=== PATIENT | male | born 1945 | race Caucasian/White ===

== ENCOUNTER 2016-12-16 20:08 | Emergency (ER) | payer MEDICARE, BC ==
[2016-12-16] MEDS ORDERED: HYDROmorphone 1 MG/ML Syringe IM ONE (20:25)
[2016-12-16] MEDS ORDERED: Gabapentin 400 MG Cap PO ONE (20:25)
[2016-12-16] MEDS ORDERED: methylPREDNISolone Sodium Succinate 125 MG/2 ML SDV IVPUSH ONE (20:26)
--- NOTE | 2016-12-16 20:27 | EDM.PDOC ---
ED HPI GENERAL MEDICAL PROBLEM - General Chief Complaint: General Stated Complaint: juanjo after surgery [id number] Time Seen by Provider: 12/16/16 20:21 Source of Information: Reports: Patient History Limitations: Reports: No limitations - History of Present Illness INITIAL COMMENTS - FREE TEXT/NARRATIVE: 71 yo white male s/p lumbar surgery @ [facility]. 2 days ago. Lumbar Min. Invasive L2-L3 Microdiscectomy & Biopsy c/o lower extremities weakness and pain. Pt. states Oxycodon not effective Onset: today Onset Date: 12/16/16 Onset Time: 12:00 Duration: Hour(s): Location: Reports: back, lower extremity, left, lower extremity, right Improves with: Reports: Rest Worsens with: Reports: Movement Upper Leg Pain Score (Numeric/FACES): 7 - Related Data Allergies Allergy/AdvReac Type Severity Reaction Status Date / Time No Known Allergies Allergy Verified 12/18/13 07:16 Home Meds: Home Meds Allopurinol [Allopurinol] 12/18/13 [History] Clotrimazole/Betamethasone Dip [Clotrimazole-Betamethasone Crm] 12/18/13 [ History] Hydrochlorothiazide [Hydrochlorothiazide] 12/18/13 [History] Levothyroxine [Levothyroxine] 12/18/13 [History] Lisinopril [Prinivil] 12/18/13 [History] atorvaSTATin [Lipitor] 12/18/13 [History] ED ROS GENERAL - Review of Systems Review Of Systems: See Below Constitutional: Reports: no symptoms HEENT: Reports: No symptoms Respiratory: Reports: No Symptoms Cardiovascular: Reports: No symptoms Endocrine: Reports: no symptoms GI/Abdominal: Reports: No symptoms : Reports: no symptoms Musculoskeletal: Reports: back pain Skin: Reports: no symptoms Neurological: Reports: Weakness (lower extremeties) Psychiatric: Reports: No symptoms Hematologic/Lymphatic: Reports: no symptoms Immunologic: Reports: no symptoms ED EXAM, GENERAL - Physical Exam Exam: See Below Exam Limited By: No limitations General Appearance: no apparent distress, obese Eye Exam: bilateral eye: PERRL Ears: normal external exam Nose: normal inspection Throat/Mouth: Normal inspection Head: atraumatic Neck: normal inspection Respiratory/Chest: no respiratory distress Cardiovascular: normal peripheral pulses GI/Abdominal: normal bowel sounds, soft Back Exam: normal inspection Extremities: leg pain, limited range of motion Neurological: alert, CN II-XII intact Psychiatric: normal affect Skin Exam: Warm Lymphatic: no adenopathy Course - Vital Signs Last Recorded V/S: Last Vital Signs Temp 37.4 C 12/16/16 20:15 Pulse 96 12/16/16 20:15 Resp 20 12/16/16 20:15 BP 147/89 H 12/16/16 20:15 Pulse Ox 93 L 12/16/16 20:15 - Orders/Labs/Meds Orders: Active Orders 24 hr Category Date Time Status Sodium Chloride 0.9% [Normal Saline] 500 ml Med 12/16/16 20:45 Active IV ASDIRECTED Medication Orders Sodium Chloride (Normal Saline) 500 mls @ 100 mls/hr IV ASDIRECTED SARA Labs: Laboratory Tests 12/16/16 12/16/16 Range/Units 20:50 20:50 WBC 12.1 H (5.0-10.0) 10^3/uL RBC 3.89 L (4.6-6.2) 10^6/uL Hgb 11.9 L (14.0-18.0) g/dL Hct 35.8 L (40.0-54.0) % MCV 92.0 (80-100) fL MCH 30.6 (27.0-34.0) pg MCHC 33.2 (33.0-35.0) g/dL Plt Count 326 (150-450) 10^3/uL Neut % (Auto) 56.1 (42.2-75.2) % Lymph % (Auto) 21.1 (20.5-50.1) % Bay % (Auto) 17.9 H (2-8) % Eos % (Auto) 4.7 H (1.0-3.0) % Baso % (Auto) 0.2 (0.0-1.0) % Sodium 137 (135-145) mmol/L Potassium 4.0 (3.6-5.0) mmol/L Chloride 100 L (101-111) mmol/L Carbon Dioxide 30.0 (21.0-31.0) mmol/L Anion Gap 11.0 BUN 25 H (7-18) mg/dL Creatinine 1.0 (0.6-1.3) mg/dL Est Cr Clr Drug Dosing 60.65 mL/min Estimated GFR (MDRD) > 60 BUN/Creatinine Ratio 25.00 Glucose 112 H (74-105) mg/dL Calcium 9.0 (8.4-10.2) mg/dl Total Bilirubin 0.9 (0.2-1.0) mg/dL AST 30 (10-42) IU/L ALT 20 (10-60) IU/L Alkaline Phosphatase 72 (42-121) IU/L Total Protein 7.2 (6.7-8.2) g/dl Albumin 3.6 (3.2-5.5) g/dl Globulin 3.6 Albumin/Globulin Ratio 1.00 Meds: Medications Generic Name Dose Route Start Last Admin Trade Name Freq PRN Reason Stop Dose Admin Sodium Chloride 500 mls @ 100 mls/hr 12/16/16 20:45 Normal Saline IV ASDIRECTED SARA Discontinued Medications Generic Name Dose Route Start Last Admin Trade Name Freq PRN Reason Stop Dose Admin Gabapentin 400 mg 12/16/16 20:25 12/16/16 21:10 Neurontin PO 12/16/16 20:26 400 mg ONETIME ONE Administration Hydromorphone HCl 1 mg 12/16/16 20:25 12/16/16 20:57 Dilaudid IM 12/16/16 20:26 1 mg ONETIME ONE Administration Sodium Chloride 1,000 mls @ 125 mls/hr 12/16/16 20:30 12/16/16 20:58 Normal Saline IV 125 mls/hr ASDIRECTED SARA Administration Methylprednisolone Sodium Succinate 125 mg 12/16/16 20:26 12/16/16 20:57 Solu-Medrol IVPUSH 12/16/16 20:27 125 mg ONETIME ONE Administration Departure - Departure Time of Disposition: 21:45 Disposition: Home, Self-Care 01 Condition: good Clinical Impression: History of back surgery, Leg weakness, bilateral Forms: ED Department Discharge Additional Instructions: Rest Take the Neurontin 300mg TID # 30 F/U w/ Surgeon Monday12/19/2016 - My Orders Last 24 Hours: My Active Orders 12/16/16 20:45 Sodium Chloride 0.9% [Normal Saline] 500 ml IV ASDIRECTED - Assessment/Plan Last 24 Hours: My Active Orders 12/16/16 20:45 Sodium Chloride 0.9% [Normal Saline] 500 ml IV ASDIRECTED
[2016-12-16] MEDS ORDERED: Sodium Chloride 0.9% 1,000 ML IV SCH (20:30)
[2016-12-16] MEDS ORDERED: Sodium Chloride 0.9% 500 ML IV SCH (20:45)
[2016-12-16 21:18] LABS: CHLORIDE,CL 100 mmol/L (101-111); SODIUM,NA 137 mmol/L (135-145)
[2016-12-16] MEDS ORDERED: Gabapentin 300 MG Cap PO ONE (21:53)
[2016-12-16] MEDS ORDERED: Gabapentin 300 MG Cap ONE (21:53)
[2016-12-16 22:28] VITALS: BP 123/87
== END 2016-12-16 22:10 | disposition home or self-care (01) ==
LOC: DL.ED 20:08
DX: R29.898 Other symptoms and signs involving the musculoskeletal system (principal); Z79.899 Other long term (current) drug therapy; Z98.890 Other specified postprocedural states
CPT/HCPCS: 36415; 72131; 80053; 85025; 96365; 96375; 99284; A9270; J1170; J2930; J7030

== ENCOUNTER 2016-12-30 23:29 | Emergency (ER) | payer MEDICARE, BC ==
--- NOTE | 2016-12-31 00:34 | EDM.PDOC ---
ED HPI GI/ABDOMINAL - General Chief Complaint: Gastrointestinal Problem Stated Complaint: CONSTIPATED Time Seen by Provider: 12/31/16 00:05 Source of Information: Reports: Patient History Limitations: Reports: No limitations - History of Present Illness INITIAL COMMENTS - FREE TEXT/NARRATIVE: c/o constipation, fullness with pain this jocelyne after taking softner and miralax. Normal BM Monday none until with small amount stool softner this am also, no vomiting. Hx back surgery 12/14. No pain medications for 2 weeks. Limited activity. Location: generalized Quality: Reports: fullness Severity: mild Associated Symptoms: Reports: denies other symptoms, constipation - Related Data Allergies/ADRs: Allergies Allergy/AdvReac Type Severity Reaction Status Date / Time No Known Allergies Allergy Verified 12/30/16 23:53 Home Meds: Home Meds Allopurinol [Allopurinol] 300 mg PO DAILY 12/18/13 [History] Clotrimazole/Betamethasone Dip [Clotrimazole-Betamethasone Crm] 12/18/13 [ History] Hydrochlorothiazide [Hydrochlorothiazide] 25 mg PO DAILY 12/18/13 [History] Levothyroxine [Levothyroxine] 175 mcg PO DAILY 12/18/13 [History] Lisinopril [Prinivil] 20 mg PO DAILY 12/18/13 [History] atorvaSTATin [Lipitor] 10 mg PO DAILY 12/18/13 [History] Past Medical History Cardiovascular History: Reports: High cholesterol, Hypertension Endocrine/Metabolic History: Reports: Hypothyroidism - Infectious Disease History Infectious Disease History: Reports: Chicken pox, Measles - Past Surgical History Other Musculoskeletal Surgeries/Procedures:: L2 and L3 surgery Social & Family History - Tobacco Use Smoking Status *Q: Never Smoker Second Hand Smoke Exposure: No - Caffeine Use Caffeine Use: Reports: Soda, Tea - Alcohol Use Date of Last Drink: 01/15/16 - Recreational Drug Use Recreational Drug Use: No ED ROS GENERAL - Review of Systems Review Of Systems: See Below Constitutional: Reports: no symptoms HEENT: Reports: No symptoms Respiratory: Reports: No Symptoms Cardiovascular: Reports: No symptoms GI/Abdominal: Reports: Abdominal pain, Constipation, Flatus : Reports: no symptoms Musculoskeletal: Reports: back pain (chronic) Skin: Reports: no symptoms Neurological: Reports: No Symptoms ED EXAM, GI/ABD - Physical Exam Exam: See Below Exam Limited By: No limitations General Appearance: alert, mild distress, obese Eyes: bilateral: normal appearance Ears: normal external exam Throat/Mouth: Normal inspection Head: atraumatic, normocephalic Neck: normal inspection, full range of motion Respiratory/Chest: no respiratory distress, lungs clear, normal breath sounds Cardiovascular: normal peripheral pulses, regular rate, rhythm GI/Abdominal: soft, hyperactive bowel sounds. No: tenderness, distention, guarding, rebound Extremities: normal inspection, normal range of motion Psychiatric: normal affect Skin Exam: Warm, Dry, Intact, Normal color Course - Vital Signs Last Recorded V/S: Last Vital Signs Temp 96.8 F 12/31/16 01:00 Pulse 92 12/31/16 01:00 Resp 20 12/31/16 01:00 BP 160/100 H 12/31/16 01:00 Pulse Ox 95 12/31/16 01:00 - Orders/Labs/Meds Orders: Active Orders 24 hr Category Date Time Status Enema [RC] ASDIRECTED Care 12/31/16 00:26 Active Abdomen 2V AP Flat Upright [CR] Urgent Exams 12/31/16 00:01 Taken - Radiology Interpretation Free Text/Narrative:: Flat and upright abdomen, unremarkable, no sign of obstruction. Moderate amount stool rectal vault. Departure - Departure Time of Disposition: 01:47 Disposition: Home, Self-Care 01 Condition: good Clinical Impression: Constipation by delayed colonic transit, History of back surgery Instructions: Constipation, Adult, [id number] Forms: ED Department Discharge Additional Instructions: continue daily use of miralax one capful daily with at least 8 ounced of liquid follow up if abdominal pain or vomiting. - My Orders Last 24 Hours: My Active Orders 12/31/16 00:01 Abdomen 2V AP Flat Upright [CR] Urgent 12/31/16 00:26 Enema [RC] ASDIRECTED - Assessment/Plan Last 24 Hours: My Active Orders 12/31/16 00:01 Abdomen 2V AP Flat Upright [CR] Urgent 12/31/16 00:26 Enema [RC] ASDIRECTED
[2016-12-31 01:27] VITALS: BP 160/100
== END 2016-12-31 01:58 | disposition home or self-care (01) ==
LOC: DL.ED 23:29
DX: K59.01 Slow transit constipation (principal); E78.00 Pure hypercholesterolemia, unspecified; I10 Essential (primary) hypertension; E03.9 Hypothyroidism, unspecified; Z79.899 Other long term (current) drug therapy; Z98.890 Other specified postprocedural states
CPT/HCPCS: 74020; 99282; 99283

== ENCOUNTER 2017-11-29 06:24 | Day surgery (SDC) | payer MEDICARE, BC ==
[2017-11-29] MEDS ORDERED: Sodium Chloride 0.9% 10 ML Syringe IV ONE (06:25)
[2017-11-29] MEDS ORDERED: Midazolam 1 MG/ML 2 ML SDV IV ONE (06:25)
[2017-11-29] MEDS ORDERED: Dexamethasone 4 MG/ML SDV IV ONE (06:25)
[2017-11-29] MEDS ORDERED: Phenylephrine 10% Ophth Soln 5 ML Bot EYELF ONE (06:30)
[2017-11-29] MEDS ORDERED: Timolol Maleate 0.5% Ophth Soln 5 ML Bottle EYELF ONE (06:30)
[2017-11-29] MEDS ORDERED: Moxifloxacin 0.5% Ophth Soln 3 ML Bottle EYELF ONE (06:30)
[2017-11-29] MEDS ORDERED: Acetaminophen 325 MG Tab PO PRN (06:30)
[2017-11-29] MEDS ORDERED: Cataract Ophth Solution EYELF ONE (06:30)
[2017-11-29] MEDS ORDERED: Sodium Chloride 0.9% 10 ML Syringe FLUSH PRN (06:30)
[2017-11-29] MEDS ORDERED: Proparacaine 0.5% Ophth Soln 15 ML Bottle EYELF ONE (06:30)
[2017-11-29] MEDS ORDERED: Povidone-Iodine 5% Sterile Ophth Soln 30 ML Bottle EYELF ONE ×2 (06:30→08:24)
[2017-11-29] MEDS ORDERED: Phenylephrine 10% Ophth Soln 5 ML Bot EYELF PRN (06:30)
[2017-11-29] MEDS ORDERED: Ondansetron 4 MG/2 ML SDV IVPUSH PRN (06:30)
[2017-11-29] MEDS ORDERED: Tetracaine HCl/PF 0.5% 4 ML Bottle EYELF ONE (08:24)
[2017-11-29] MEDS ORDERED: Lidocaine 1% 30 ML SDV ONE (08:24)
[2017-11-29] MEDS ORDERED: Dexamethasone/Neomycin/Polymyxin B Ophth Oint 3.5 GM Tube EYELF ONE (08:25)
[2017-11-29] MEDS ORDERED: Vancomycin 500 MG SDV EYELF ONE (08:25)
[2017-11-29] MEDS ORDERED: Apraclonidine 0.5% Ophth Soln 5 ML Bot EYELF ONE (08:25)
[2017-11-29] MEDS ORDERED: Chondroitin Sulfate/Hyaluronate Sodium Ophth Inj 0.75 ML Syringe EYELF ONE (08:26)
[2017-11-29] MEDS ORDERED: Balanced Salt Solution Ophth Irrig 500 ML Bottle IOCULAR ONE (08:26)
[2017-11-29 09:23] VITALS: BP 137/81
--- NOTE | 2017-11-29 09:29 | OR ---
DATE: 11/29/2017 PREOPERATIVE DIAGNOSIS: Visually significant mixed cataract, left eye. POSTOPERATIVE DIAGNOSIS: Visually significant mixed cataract, left eye. PROCEDURE: Extracapsular cataract extraction with intraocular lens implant, left eye. ANESTHESIA: Topical/local MAC. COMPLICATIONS: None. INDICATION: Mr. Rosenberg was seen in the clinic. He has complained of difficulty with glare, difficulty with bright light, difficulty driving at night. Clinical examination reveals visually significant mixed nuclear and cortical cataract with best spectacle corrected vision of 20/40. Oncoming light, reveals a visual acuity of 20 unable. I explained options. I offered cataract surgery, and I explained risks including the potential for infection, retinal detachment, loss of vision, amongst others. He is unhappy with his vision and requested surgery. He requested a monofocal implant. OPERATIVE DESCRIPTION: After informed consent was obtained and the risks, benefits, and alternatives were explained, the patient was brought to the operative suite and topical anesthesia was administered. The patient was then prepped and draped in the sterile fashion and attention was placed on the left eye. A sterile lid speculum was placed into the left eye to allow operative exposure. A full-thickness paracentesis was made in the temporal portion of the operative eye. Preservative-free lidocaine 0.1 mL was injected into the anterior chamber followed by viscoelastic. A full-thickness corneal incision was then made into the anterior chamber. A bent needle cystotome was used to create a small mann in the anterior capsule. The capsulorrhexis forceps was then used to create a 360-degree curvilinear capsulorrhexis. The nucleus was then removed using a phacoemulsification handpiece and the remaining cortical material was then removed with irrigation and aspiration handpiece. Following removal of the cortical material, the capsular bag was then inspected and noted to be free of any holes or tears. Viscoelastic was then injected into the capsular bag and the intraocular lens was inserted into the capsular bag. The viscoelastic material was then removed from both the anterior and posterior chambers and from behind the IOL. The lens and capsular bag were then reinspected. The IOL was well centered and the capsular bag intact. The wound and paracentesis sites were inspected and hydrated with balanced saline solution. Both were found to be self- sealing. The intraocular pressure was assessed digitally and found to be within normal range. A good red reflex was noted at the completion of the procedure. No complications occurred during the operation. At the completion of the procedure, Maxitrol, Voltaren, and Iopidine drops were placed into the operative eye. A sterile eye shield was placed over the operative eye and the patient was transported to the postoperative recovery area having tolerated the procedure well. Postoperative instructions were given along with a postoperative appointment. The patient was advised to call with any questions or concerns. No complications occurred. [facility] /[id number]
== END 2017-11-29 09:31 | disposition home or self-care (01) ==
LOC: DL.SDS 06:24
PROVIDERS: ATTEND Ophthalmology
DX: H25.812 Combined forms of age-related cataract, left eye (principal); I10 Essential (primary) hypertension; E78.5 Hyperlipidemia, unspecified; E03.9 Hypothyroidism, unspecified; Z79.899 Other long term (current) drug therapy; Z88.1 Allergy status to other antibiotic agents; Z79.82 Long term (current) use of aspirin
CPT/HCPCS: 66984; A9270; C1780; J1100; J2250; J3370; J7050; 00142

== ENCOUNTER 2017-12-06 06:55 | Day surgery (SDC) | payer MEDICARE, BC ==
[2017-12-06] MEDS ORDERED: Midazolam 1 MG/ML 2 ML SDV IV ONE (06:56)
[2017-12-06] MEDS ORDERED: Sodium Chloride 0.9% 10 ML Syringe IV ONE (06:56)
[2017-12-06] MEDS ORDERED: Dexamethasone 4 MG/ML SDV IV ONE (06:56)
[2017-12-06] MEDS ORDERED: Phenylephrine 10% Ophth Soln 5 ML Bot EYERT ONE (07:00)
[2017-12-06] MEDS ORDERED: Moxifloxacin 0.5% Ophth Soln 3 ML Bottle EYERT ONE (07:00)
[2017-12-06] MEDS ORDERED: Phenylephrine 10% Ophth Soln 5 ML Bot EYERT PRN (07:00)
[2017-12-06] MEDS ORDERED: Ondansetron 4 MG/2 ML SDV IVPUSH PRN (07:00)
[2017-12-06] MEDS ORDERED: Cataract Ophth Solution EYERT ONE (07:00)
[2017-12-06] MEDS ORDERED: Acetaminophen 325 MG Tab PO PRN (07:00)
[2017-12-06] MEDS ORDERED: Sodium Chloride 0.9% 10 ML Syringe FLUSH PRN (07:00)
[2017-12-06] MEDS ORDERED: Timolol Maleate 0.5% Ophth Soln 5 ML Bottle EYERT ONE (07:00)
[2017-12-06] MEDS ORDERED: Povidone-Iodine 5% Sterile Ophth Soln 30 ML Bottle EYERT ONE ×2 (07:00→08:31)
[2017-12-06] MEDS ORDERED: Proparacaine 0.5% Ophth Soln 15 ML Bottle EYERT ONE (07:00)
[2017-12-06] MEDS ORDERED: Tetracaine HCl/PF 0.5% 4 ML Bottle EYERT ONE (08:30)
[2017-12-06] MEDS ORDERED: Lidocaine 1% 30 ML SDV ONE (08:31)
[2017-12-06] MEDS ORDERED: Apraclonidine 0.5% Ophth Soln 5 ML Bot EYERT ONE (08:31)
[2017-12-06] MEDS ORDERED: Vancomycin 500 MG SDV EYERT ONE (08:32)
[2017-12-06] MEDS ORDERED: Dexamethasone/Neomycin/Polymyxin B Ophth Oint 3.5 GM Tube EYERT ONE (08:32)
[2017-12-06] MEDS ORDERED: Chondroitin Sulfate/Hyaluronate Sodium Ophth Inj 0.75 ML Syringe EYERT ONE (08:33)
[2017-12-06] MEDS ORDERED: Balanced Salt Solution Ophth Irrig 500 ML Bottle IOCULAR ONE (08:33)
--- NOTE | 2017-12-06 09:12 | OR ---
DATE: 12/06/2017 PREOPERATIVE DIAGNOSIS: Visually significant mixed cataract, right eye. POSTOPERATIVE DIAGNOSIS: Visually significant mixed cataract, right eye. PROCEDURE: Extracapsular cataract extraction with intraocular lens implant, right eye. ANESTHESIA: Topical/local MAC. COMPLICATIONS: None. INDICATION: Mr. Rosenberg was seen in the clinic. He has complained of difficulty with bright lights and glare, difficulty driving at night. His clinical examination reveals visually significant cataract. Visual acuity with oncoming light drops to the level of 20 unable. Clinical examination reveals mixed nuclear and cortical cataract. I explained options; I offered cataract surgery; and I explained the risks including the potential for infection, retinal detachment, and loss of vision amongst others. We discussed implant options. He has requested cataract surgery with a monofocal implant. He understands that he may require glasses for some activities following surgery. OPERATIVE DESCRIPTION: After informed consent was obtained and the risks, benefits, and alternatives were explained, the patient was brought to the operative suite and topical anesthesia was administered. The patient was then prepped and draped in the sterile fashion and attention was placed on the right eye. A sterile lid speculum was placed into the right eye to allow operative exposure. A full-thickness paracentesis was made in the temporal portion of the operative eye. Preservative-free lidocaine 0.1 mL was injected into the anterior chamber followed by viscoelastic. A full-thickness corneal incision was then made into the anterior chamber. A bent needle cystotome was used to create a small mann in the anterior capsule. The capsulorrhexis forceps was then used to create a 360-degree curvilinear capsulorrhexis. The nucleus was then removed using a phacoemulsification handpiece, and the remaining cortical material was then removed with irrigation and aspiration handpiece. Following removal of the cortical material, the capsular bag was then inspected and noted to be free of any holes or tears. Viscoelastic was then injected into the capsular bag, and the intraocular lens was inserted into the capsular bag. The viscoelastic material was then removed from both the anterior and posterior chambers and from behind the IOL. The lens and capsular bag were then reinspected. The IOL was well centered and the capsular bag intact. The wound and paracentesis sites were inspected and hydrated with balanced saline solution. Both were found to be self-sealing. The intraocular pressure was assessed digitally and found to be within normal range. A good red reflex was noted at the completion of the procedure. No complications occurred during the operation. At the completion of the procedure, Maxitrol, Voltaren, and Iopidine drops were placed into the operative eye. A sterile eye shield was placed over the operative eye and the patient was transported to the postoperative recovery area having tolerated the procedure well. Postoperative instructions were given along with a postoperative appointment. The patient was advised to call with any questions or concerns. [facility] /[id number]
[2017-12-06 12:53] VITALS: BP 129/69
== END 2017-12-06 09:46 | disposition home or self-care (01) ==
LOC: DL.SDS 06:55
PROVIDERS: ATTEND Ophthalmology
DX: H25.811 Combined forms of age-related cataract, right eye (principal); I10 Essential (primary) hypertension; E78.5 Hyperlipidemia, unspecified; E03.9 Hypothyroidism, unspecified; Z79.82 Long term (current) use of aspirin; Z79.899 Other long term (current) drug therapy; Z88.1 Allergy status to other antibiotic agents
CPT/HCPCS: 66984; A9270; J1100; J2250; J3370; J7050; 00142; C1780